=== PATIENT | female | born 1980 | race Hispanic/Latino ===

== ENCOUNTER 2017-08-22 13:25 | Emergency (ER) | payer OTHER ==
[~2017-08-22] VITALS: Ht 157.5 cm; Wt 64.4 kg
[~2017-08-22 13:25] MED LIST: AMBIEN10 MG PO; BACTRIM DS TAB1 EACH PO; CYMBALTA60 MG PO; FORTAMET500 MG PO; KLOR-CON M2020 MEQ PO; LITHIUM CARBON300 MG PO; METOCLOPRAMIDE10 MG PO; NEURONTIN300 MG PO; NEXIUM40 MG PO; PROMETHAZINE HC25 M1 PO; TRAZODONE HCL100 MG PO; VALIUM5 MG PO; ZESTORETIC 20-1 EAC1 PO; ZOVIRAX200 MG PO
--- OUTSIDE RECORDS SUMMARY | 2017-08-22 13:28 | XMS REPORT ---
Author Author [facility] Address Unknown Phone Unavailable Care Team Providers Care Quality Assurance Auditor Name Role Phone GINA MUHAMMAD Unavailable Unavailable Problems This patient has no known problems. Allergies, Adverse Reactions, Alerts This patient has no known allergies or adverse reactions. Medications This patient has no known medications. Results Test Description Test Time Test Comments Text Results Atomic Results Result Comments IR CONSULT [place] [address] Patient Name: RANGEL MARTINEZ MR #: [id number] : 1980 Age/Sex: 37/F Req #: [id number] Adm Physician: GINA MUHAMMAD MD Ordered by: MÓNICA HOU MD Report #: [id number] Location: [facility] Room/Bed: [facility] ___ Procedure: [id number] DX/IR CONSULT Exam Date: Exam Time: REPORT STATUS: Signed CT-guided abscess drain March Pre-Procedure Diagnosis: Abdominal abscess Post-procedure Diagnosis:Abdominal abscess Dining Room Cashier: Thien Leung Die Holder: None Sedation: Moderate sedation was provided with intravenous fentanyl and Versed. Heart rate, rhythm and oxygen saturation were monitored and real-time by a dedicated interventional radiology nurse under my direct supervision. Blood pressure was monitored in 5 minute increments. 1% lidocaine was used for local anesthesia. Total sedation time: 30 minutes Radiation Dose:329.78 mGy- cm (DLP) Estimate blood loss: <5 mL Blood administered: None Complications: None Implants/Grafts: None Specimen: 20 mL pus for Gram stain , culture and sensitivity. Procedure: Informed consent was obtained and the patient placed supine. A timeout was performed, followed by website developer CT within the region of interest. The anterior abdomen was prepped and draped in standard sterile fashion. Using intermittent CT guidance, an 18-gauge 15 cm Chiba needle was advanced into the abdominal abscess from an anterior approach. Upon confirmation of positioning the needle was exchanged for a 14- Gambian drainage catheter using standard Seldinger technique. 160 mL of additional pus was aspirated and discarded here the catheter was connected to a EMILY drain and secured. Findings: Large midline abdominal abscess in keeping with known bowel perforation. Impression: Successful CT-guided abscess drainage catheter placement under moderate sedation. This report was generated with voice-recognition technology. Errors in oracle erp architect can occur. Please interpret accordingly and contact a radiologist if there are any questions regarding the report. Signed by: Dr. Jaiden Leung M.D. on 03/19/2017 7:53 AM Dictated By: JAIDEN LEUNG MD 2 Transcribed By: WENDY on 03/19/17 075 COPY TO: MÓNICA HOU MD IMAGING GUIDANCE (DRAINAGE) [place] [address] Patient Name: RANGLE MARTINEZ MR #: [id number] : 1980 Age/Sex: 37/F Req #: [id number] Adm Physician: GINA MUHAMMAD MD Ordered by: MÓNICA HOU MD Report #: [id number] Location: MED/SURG3 Room/Bed: [facility] _ Procedure: [id number] IR/IMAGING GUIDANCE (DRAINAGE) Exam Date: 03/15/17 Exam Time: 1300 REPORT STATUS: Signed CT-guided abscess drain March 15, 2017 Pre-Procedure Diagnosis : Abdominal abscess Post-procedure Diagnosis:Abdominal abscess Dining Room Cashier: Thien Leung Die Holder: None Sedation: Moderate sedation was provided with intravenous fentanyl and Versed. Heart rate, rhythm and oxygen saturation were monitored and real-time by a dedicated interventional radiology nurse under my direct supervision. Blood pressure was monitored in 5 minute increments. 1% lidocaine was used for local anesthesia. Total sedation time: 30 minutes Radiation Dose:329.78 mGy-cm (DLP) Estimate blood loss: <5 mL Blood administered: None Complications: None Implants/Grafts: None Specimen: 20 mL pus for Gram stain, culture and sensitivity. Procedure: Informed consent was obtained and the patient placed supine. A timeout was performed, followed by website developer CT within the region of interest. The anterior abdomen was prepped and draped in standard sterile fashion. Using intermittent CT guidance, an 18-gauge 15 cm Chiba needle was advanced into the abdominal abscess from an anterior approach. Upon confirmation of positioning the needle was exchanged for a 14-Gambian drainage catheter using standard Seldinger technique. 160 mL of additional pus was aspirated and discarded here the catheter was connected to a EMILY drain and secured. Findings: Large midline abdominal abscess in keeping with known bowel perforation. Impression: Successful CT-guided abscess drainage catheter placement under moderate sedation. This report was generated with voice-recognition technology. Errors in oracle erp architect can occur. Please interpret accordingly and contact a radiologist if there are any questions regarding the report. Signed by: Dr. Jaiden Leung M.D. on 03/19/2017 7: 53 AM Dictated By: JAIDEN LEUNG MD 0753 Transcribed By: WENDY on 03/19/17 0753 COPY TO: MÓNICA HOU MD ABD FLUID/ABSC W CATH-CT [place] [address] Patient Name: RANGEL MARTINEZ MR #: [id number] : 1980 Age/Sex: 37/F Req #: [id number] Adm Physician: GINA MUHAMMAD MD Ordered by: MÓNICA HOU MD Report #: [id number] Location: MED/SURG3 Room/Bed: [facility] _ Procedure: [id number] CT/DRN ABD FLUID/ABSC W CATH-CT Exam Date: Exam Time: REPORT STATUS: Signed CT-guided abscess drain March 15, 2017 Pre-Procedure Diagnosis: Abdominal abscess Post-procedure Diagnosis:Abdominal abscess Dining Room Cashier: Thien Leung Die Holder: None Sedation: Moderate sedation was provided with intravenous fentanyl and Versed. Heart rate, rhythm and oxygen saturation were monitored and real-time by a dedicated interventional radiology nurse under my direct supervision. Blood pressure was monitored in 5 minute increments. 1% lidocaine was used for local anesthesia. Total sedation time: 30 minutes Radiation Dose:329.78 mGy-cm (DLP) Estimate blood loss: <5 mL Blood administered: None Complications: None Implants/Grafts: None Specimen: 20 mL pus for Gram stain, culture and sensitivity. Procedure: Informed consent was obtained and the patient placed supine. A timeout was performed, followed by website developer CT within the region of interest. The anterior abdomen was prepped and draped in standard sterile fashion. Using intermittent CT guidance, an 18-gauge 15 cm Chiba needle was advanced into the abdominal abscess from an anterior approach. Upon confirmation of positioning the needle was exchanged for a 14-Gambian drainage catheter using standard Seldinger technique. 160 mL of additional pus was aspirated and discarded here the catheter was connected to a EMILY drain and secured. Findings: Large midline abdominal abscess in keeping with known bowel perforation. Impression: Successful CT-guided abscess drainage catheter placement under moderate sedation. This report was generated with voice-recognition technology. Errors in oracle erp architect can occur. Please interpret accordingly and contact a radiologist if there are any questions regarding the report. Signed by: Dr. Jaiden Leung M.D. on 03/19/2017 7: 53 AM Dictated By: JAIDEN LEUNG MD 2 Transcribed By: WENDY on 03/19/17752 COPY TO: MÓNICA HOU MD CHEST SINGLE (PORTABLE) [place] [address] Patient Name: RANGEL MARTINEZ MR #: [id number] : 1980 Age/Sex: 37/F Req #: [id number] Adm Physician: Ordered by: JUNE BOWMAN Report #: [id number] Location: ER Room/Bed: _ Procedure: [id number] DX/CHEST SINGLE (PORTABLE) Exam Date: 03/14/17 Exam Time: 1227 REPORT STATUS: Signed EXAM: XR CHEST 1 VIEW DATE: 03/14/2017 3:03 PM INDICATION: Fever COMPARISON: 09/20/2013 FINDINGS: Lines and Tubes: None Heart and Mediastinum: No acute findings. Lungs and Pleura: No acute findings. Bones and Soft Tissues: No acute findings. IMPRESSION: 1. No acute cardiopulmonary findings. Signed by: Dr. Paul Mckeon MD on 03/14/2017 12: 52 PM Dictated By: PAUL MCKEON MD 125 Transcribed By: WENDY on 03/14/17 125 COPY TO: JUNE BOWMAN CT ABDOMEN/PELVIS W [place] [address] Patient Name: RANGEL MARTINEZ MR #: [id number] : 1980 Age/Sex: 37/F Req #: [id number] Adm Physician: Ordered by: JUNE BWOMAN Report #: [id number] Location: ER Room/Bed: _ Procedure: [id number] CT/CT ABDOMEN/PELVIS W Exam Date: 03/14/17 Exam Time: 1450 REPORT STATUS: Signed EXAM: CT Abdomen and Pelvis WITH contrast INDICATION: COMPARISON: None. TECHNIQUE: Abdomen and Pelvis was scanned utilizing a multidetector helical scanner after administration of IV contrast. Coronal and sagittal reformations were obtained. IV CONTRAST: See worksheet COMPLICATIONS: None RADIATION DOSE: Total DLP:256 mGy *cm Estimated effective dose: (DLP x 0.015 x size factor) mSv CTDIvol has been reviewed. It is below the limits set by the Radiation Protocol Committee (RPC). FINDINGS: Abdomen: Lung Bases: No acute findings. Solid Organs: Liver, adrenals, kidneys, spleen, and pancreas unremarkable. Cholecystectomy changes with mild reservoir phenomenon. Upper GI Tract: Bariatric postsurgical changes. Inflammatory changes in the upper abdomen presumed postsurgical. Bowel evaluation is limited given lack of enteric contrast. There is a 7.8 x 6 cm fluid and gas collection in the mid abdomen. It is unclear whether this is contiguous with bowel representing focal dilation of postsurgical bowel or whether this represents an intraperitoneal abscess. No distinct extraluminal gas identified. More distal small bowel obstruction nondilated. Vascularity: No aortic aneurysm. Lymph Nodes: Evaluation limited given mesenteric inflammatory changes. Other: Small amount of fluid and stranding in the ventral abdomen, statistically postsurgical. Pelvis: Bladder : Unremarkable. Other: Uterus heterogeneous, but poorly evaluated with CT. Fluid likely present within the endometrium. Small statistically physiologic cyst right adnexa. Colon: Colonic evaluation limited by decompression and lack of enteric contrast. No significant stool burden identified. Bones: No acute findings. IMPRESSION: 1. Bariatric surgery changes. There is a 7.8 x 6 cm fluid and gas collection in the mid abdomen. It is unclear whether this is contiguous with bowel representing focal dilation of postsurgical bowel or whether this represents an intraperitoneal abscess. Enteric contrast would be very helpful for further evaluation. Clinical and laboratory correlation recommended. 2. No significant stool burden identified. 3. Pelvic findings statistically physiologic in a patient of this age. Ultrasound could be obtained for further evaluation if indicated. Signed by: Dr. Paul Mckeon MD on 03/14/2017 3:23 PM Dictated By: PAUL MCKEON MD 1523 Transcribed By: WENDY on 03/14/17 1523 COPY TO: JUNE BOWMAN
[2017-08-22 14:23] LABS: BASOPHILS # (AUTO) 0.1 (0.0-0.1); BASOPHILS % 0.6 % (0.0-1.0); EOSINOPHILS # (AUTO) 0.2 (0.0-0.4); EOSINOPHILS % 1.6 % (0.0-6.0); HEMATOCRIT 31.1 % (34.2-44.1); HEMOGLOBIN 10.1 g/dL (12.0-16.0); LYMPHOCYTES # (AUTO) 1.3 (1.0-3.2); LYMPHOCYTES % 12.9 % (18.0-39.1); MEAN CORPUSCULAR HEMOGLOBIN 29.6 pg (28-32); MEAN CORPUSCULAR HGB CONC 32.5 g/dL (31-35); MEAN CORPUSCULAR VOLUME 91.2 fL (81-99); MONOCYTES # (AUTO) 0.4 (0.2-0.8); MONOCYTES % 4.1 % (4.4-11.3); NEUTROPHILS # (AUTO) 8.2 (2.1-6.9); NEUTROPHILS % 80.5 % (38.7-80.0); PLATELET COUNT 260 x10e3/uL (140-360); RED BLOOD COUNT 3.41 x10e6/uL (3.6-5.1); RED CELL DISTRIBUTION WIDTH 15.6 % (11.7-14.4)
[2017-08-22 14:28] LABS: CLARITY,URINE CLEAR (CLEAR); COLOR,URINE YELLOW (YELLOW); LEUKOCYTE ESTERASE ,URINE 2+ (NEGATIVE); NITRITE,URINE POSITIVE (NEGATIVE); PROTEIN,URINE DIPSTICK 1+ (NEGATIVE)
[2017-08-22 14:29] LABS: BILIRUBIN,URINE NEGATIVE (NEGATIVE); KETONES,URINE NEGATIVE (NEGATIVE); URINE UROBILINOGEN 1 mg/dL (0.2 - 1)
[2017-08-22] MEDS ORDERED: CEFTRIAXONE SOD 1 GM VIAL IV ONE (14:30)
[2017-08-22 14:35] LABS: WBC,URINE (MAN) >50 /HPF (0-5)
[2017-08-22 14:36] LABS: BACTERIA,URINE MANY /HPF; EPITHELIAL CELLS,URINE FEW /LPF; RBC,URINE 0-5 /HPF (0-5)
[2017-08-22 14:37] LABS: ALANINE AMINOTRANSFERASE 13 IU/L (0-55); ALBUMIN 3.1 g/dL (3.5-5.0); ALBUMIN/GLOBULIN RATIO 0.8 (0.8-2.0); ALKALINE PHOSPHATASE 75 IU/L (40-150); ANION GAP 9.4 mmol/L (8-16); BLOOD UREA NITROGEN 9 mg/dL (7-26); BUN/CREATININE RATIO 14 (6-25); CALCIUM 8.6 mg/dL (8.4-10.2); CARBON DIOXIDE 25 mmol/L (22-29); CHLORIDE 107 mmol/L (98-107); CREATINE KINASE 133 IU/L (29-168); CREATININE, SERUM 0.66 mg/dL (0.57-1.11); EST GLOMERULAR FILTRATION RATE > 60 ML/MIN (60-); GLUCOSE 102 mg/dL (74-118); POTASSIUM 3.4 mmol/L (3.5-5.1); SODIUM 138 mmol/L (136-145)
[2017-08-22] MEDS: SODIUM CHLORIDE 0.9% 1000ML 1,000 ML IV SCH ×2 (14:45→14:50)
[2017-08-22 15:45] VITALS: BP 105/63
== END 2017-08-22 16:07 | disposition home or self-care (01) ==
LOC: ER 13:25
DX: R53.1 Weakness (principal); R53.83 Other fatigue; N10 Acute pyelonephritis
CPT/HCPCS: 36415; 80053; 81001; 82550; 82553; 84484; 85025; 87086; 87186; 93005; 99283; J0696; J7030

== ENCOUNTER 2020-10-20 16:26 | Inpatient (IN) | payer SELFPAY ==
[~2020-10-20] VITALS: Ht 157.5 cm; Wt 67.3 kg
[2020-10-20 17:13] LABS: CLARITY,URINE CLEAR (CLEAR); COLOR,URINE YELLOW (YELLOW)
[2020-10-20 17:14] LABS: ALANINE AMINOTRANSFERASE 16 IU/L (0-55); ALBUMIN/GLOBULIN RATIO 1.3 (0.8-2.0); ALKALINE PHOSPHATASE 67 IU/L (40-150); ANION GAP 14.6 mmol/L (8-16); BLOOD UREA NITROGEN 12 mg/dL (7-26); BUN/CREATININE RATIO 17 (6-25); CALCIUM 9.2 mg/dL (8.4-10.2); CARBON DIOXIDE 22 mmol/L (22-29); CHLORIDE 107 mmol/L (98-107); CREATINE KINASE 711 IU/L (29-168); CREATININE, SERUM 0.69 mg/dL (0.57-1.11); EST GLOMERULAR FILTRATION RATE 95 ML/MIN (60-); GLUCOSE 104 mg/dL (74-118); KETONES,URINE 1+ (NEGATIVE); LEUKOCYTE ESTERASE ,URINE NEGATIVE (NEGATIVE); NITRITE,URINE NEGATIVE (NEGATIVE); POTASSIUM 3.6 mmol/L (3.5-5.1); PROTEIN,URINE DIPSTICK NEGATIVE (NEGATIVE); SODIUM 140 mmol/L (136-145); URINE UROBILINOGEN 0.2 mg/dL (0.2 - 1)
[2020-10-20 17:15] LABS: LIPASE 19 U/L (8-78)
[2020-10-20 17:17] LABS: BACTERIA,URINE RARE /HPF; EPITHELIAL CELLS,URINE FEW /LPF; RBC,URINE 0-5 /HPF (0-5); WBC,URINE (MAN) 0-5 /HPF (0-5)
[2020-10-20] MEDS ORDERED: ONDANSETRON HCL INJ 2MG/ML 2ML 2 MG/ML VIAL IV STA (17:19)
[2020-10-20] MEDS ORDERED: MORPHINE SULFATE INJ 4 MG/ML INJ 1ML IV STA (17:19)
[2020-10-20 17:22] LABS: BASOPHILS # (AUTO) 0.1 (0.0-0.1); BASOPHILS % 0.4 % (0.0-1.0); EOSINOPHILS # (AUTO) 0.6 (0.0-0.4); EOSINOPHILS % 4.1 % (0.0-6.0); HEMOGLOBIN 10.4 g/dL (12.0-16.0); LYMPHOCYTES # (AUTO) 1.5 (1.0-3.2); LYMPHOCYTES % 10.3 % (18.0-39.1); MEAN CORPUSCULAR HEMOGLOBIN 26.1 pg (28-32); MEAN CORPUSCULAR HGB CONC 30.6 g/dL (31-35); MEAN CORPUSCULAR VOLUME 85.2 fL (81-99); MONOCYTES # (AUTO) 0.4 (0.2-0.8); MONOCYTES % 2.4 % (4.4-11.3); NEUTROPHILS # (AUTO) 12.2 (2.1-6.9); NEUTROPHILS % 82.5 % (38.7-80.0); PLATELET COUNT 304 x10e3/uL (140-360); RED BLOOD COUNT 3.99 x10e6/uL (3.6-5.1); RED CELL DISTRIBUTION WIDTH 16.4 % (11.7-14.4)
[2020-10-20 17:30] LABS: THYROID STIMULATING HORMONE 1.624 uIU/mL (0.350-4.940)
[2020-10-20] MEDS ORDERED: SODIUM CHLORIDE 0.9% 1000ML 1,000 ML IV ONE (17:30)
[2020-10-20] MEDS ORDERED: SODIUM CHLORIDE 0.9% 50ML 50 ML ONE (17:31)
[2020-10-20] MEDS ORDERED: IOPAMIDOL 370 MG/ML 200 ML INFUS..BTL INJ ONE (17:32)
[2020-10-20] MEDS ORDERED: DIATRIZOATE MEGL/DIATRIZOA SOD 30 ML BTL PO ONE (17:32)
[2020-10-20] MEDS: SODIUM CHLORIDE 0.9% 1000ML 1,000 ML IV SCH (19:38)
[2020-10-20 21:15] VITALS: BP 107/59
[2020-10-20 23:10] VITALS: BP 110/68
[2020-10-20] MEDS: MORPHINE SULFATE INJ 4 MG/ML INJ 1ML IV PRN (23:10)
[2020-10-20 23:17] VITALS: BP 110/68
[2020-10-20] MEDS: ONDANSETRON HCL INJ 2MG/ML 2ML 2 MG/ML VIAL IV PRN (23:29)
[2020-10-21] VITALS (8 sets, daily range): BP systolic 90–107; BP diastolic 51–61
[2020-10-21 05:20] LABS: ALBUMIN/GLOBULIN RATIO 1.1 (0.8-2.0); ANION GAP 10.7 mmol/L (8-16); CALCIUM 7.8 mg/dL (8.4-10.2); CREATININE, SERUM 0.61 mg/dL (0.57-1.11); POTASSIUM 3.7 mmol/L (3.5-5.1)
[2020-10-21] MEDS: SODIUM CHLORIDE 0.9% 1000ML 1,000 ML IV SCH ×3 (06:36→21:13)
[2020-10-21 06:47] LABS: BASOPHILS % 0.3 % (0.0-1.0); EOSINOPHILS % 0.3 % (0.0-6.0); HEMATOCRIT 28.9 % (34.2-44.1); LYMPHOCYTES # (AUTO) 1.5 (1.0-3.2); LYMPHOCYTES % 12.4 % (18.0-39.1); MEAN CORPUSCULAR HEMOGLOBIN 26.4 pg (28-32); MEAN CORPUSCULAR HGB CONC 31.1 g/dL (31-35); MEAN CORPUSCULAR VOLUME 84.8 fL (81-99); MONOCYTES # (AUTO) 0.5 (0.2-0.8); MONOCYTES % 3.9 % (4.4-11.3); NEUTROPHILS % 82.7 % (38.7-80.0); PLATELET COUNT 238 x10e3/uL (140-360); RED BLOOD COUNT 3.41 x10e6/uL (3.6-5.1); RED CELL DISTRIBUTION WIDTH 16.4 % (11.7-14.4)
[2020-10-21] MEDS: MORPHINE SULFATE INJ 4 MG/ML INJ 1ML IV PRN ×2 (11:10→21:26)
[2020-10-21] MEDS: ONDANSETRON HCL INJ 2MG/ML 2ML 2 MG/ML VIAL IV PRN ×2 (11:10→21:26)
[2020-10-21] MEDS: METRONIDAZOLE 500MG/NS 100ML 100 ML IV SCH ×2 (14:01→21:16)
[2020-10-22] VITALS (8 sets, daily range): BP systolic 97–120; BP diastolic 51–78
[2020-10-22 05:05] LABS: BASOPHILS % 0.7 % (0.0-1.0); EOSINOPHILS # (AUTO) 0.4 (0.0-0.4); EOSINOPHILS % 6.5 % (0.0-6.0); HEMATOCRIT 26.1 % (34.2-44.1); HEMOGLOBIN 8.1 g/dL (12.0-16.0); LYMPHOCYTES # (AUTO) 1.6 (1.0-3.2); LYMPHOCYTES % 26.7 % (18.0-39.1); MEAN CORPUSCULAR HEMOGLOBIN 26.4 pg (28-32); MONOCYTES # (AUTO) 0.3 (0.2-0.8); MONOCYTES % 4.7 % (4.4-11.3); NEUTROPHILS # (AUTO) 3.7 (2.1-6.9); NEUTROPHILS % 61.1 % (38.7-80.0); PLATELET COUNT 179 x10e3/uL (140-360); RED BLOOD COUNT 3.07 x10e6/uL (3.6-5.1); RED CELL DISTRIBUTION WIDTH 16.7 % (11.7-14.4)
[2020-10-22 05:20] LABS: ANION GAP 7.5 mmol/L (8-16); CALCIUM 7.8 mg/dL (8.4-10.2); CREATININE, SERUM 0.58 mg/dL (0.57-1.11); POTASSIUM 3.5 mmol/L (3.5-5.1)
[2020-10-22] MEDS: SODIUM CHLORIDE 0.9% 1000ML 1,000 ML IV SCH ×3 (05:35→19:20)
[2020-10-22] MEDS: METRONIDAZOLE 500MG/NS 100ML 100 ML IV SCH ×3 (06:45→21:40)
[2020-10-22] MEDS: MORPHINE SULFATE INJ 4 MG/ML INJ 1ML IV PRN ×2 (14:28→21:40)
[2020-10-22] MEDS: ONDANSETRON HCL INJ 2MG/ML 2ML 2 MG/ML VIAL IV PRN ×2 (14:29→21:40)
[2020-10-23 00:08] VITALS: BP 116/76
[2020-10-23 00:23] LABS: FERRITIN 36.35 ng/mL (4.63-204.00)
[2020-10-23] MEDS: SODIUM CHLORIDE 0.9% 1000ML 1,000 ML IV SCH ×2 (04:02→12:06)
[2020-10-23] MEDS: ONDANSETRON HCL INJ 2MG/ML 2ML 2 MG/ML VIAL IV PRN (04:03)
[2020-10-23] MEDS: MORPHINE SULFATE INJ 4 MG/ML INJ 1ML IV PRN (04:03)
[2020-10-23 05:01] VITALS: BP 120/72
[2020-10-23 05:48] LABS: BASOPHILS % 0.8 % (0.0-1.0); EOSINOPHILS # (AUTO) 0.4 (0.0-0.4); EOSINOPHILS % 8.2 % (0.0-6.0); HEMATOCRIT 26.2 % (34.2-44.1); LYMPHOCYTES # (AUTO) 1.7 (1.0-3.2); LYMPHOCYTES % 34.9 % (18.0-39.1); MEAN CORPUSCULAR HEMOGLOBIN 26.1 pg (28-32); MEAN CORPUSCULAR HGB CONC 30.5 g/dL (31-35); MEAN CORPUSCULAR VOLUME 85.3 fL (81-99); MONOCYTES # (AUTO) 0.3 (0.2-0.8); MONOCYTES % 6.8 % (4.4-11.3); NEUTROPHILS # (AUTO) 2.3 (2.1-6.9); NEUTROPHILS % 49.3 % (38.7-80.0); PLATELET COUNT 200 x10e3/uL (140-360); RED BLOOD COUNT 3.07 x10e6/uL (3.6-5.1); RED CELL DISTRIBUTION WIDTH 16.4 % (11.7-14.4)
[2020-10-23] MEDS: METRONIDAZOLE 500MG/NS 100ML 100 ML IV SCH ×2 (05:52→14:25)
[2020-10-23 06:16] LABS: ALBUMIN 2.8 g/dL (3.5-5.0); ANION GAP 9.4 mmol/L (8-16); CALCIUM 8.1 mg/dL (8.4-10.2); CREATININE, SERUM 0.62 mg/dL (0.57-1.11); POTASSIUM 3.4 mmol/L (3.5-5.1)
[2020-10-23 07:55] VITALS: BP 101/66
[2020-10-23 10:50] VITALS: BP 101/66
[2020-10-23] MEDS ORDERED: POTASSIUM BICARBONATE/CIT AC 20 MEQ TABLET.EFF PO ONE (11:00)
[2020-10-23 15:35] VITALS: BP 109/67
== END 2020-10-23 17:45 | disposition home or self-care (01) | DRG 395 ==
LOC: ER 16:36 → ERHOLD 19:16 → MED/SURG2 21:56
PROVIDERS: ADMIT Internal Medicine; ATTEND Internal Medicine
DX: K95.89 Other complications of other bariatric procedure (principal); Z98.0 Intestinal bypass and anastomosis status; Y84.8 Other medical procedures as the cause of abnormal reaction of the patient, or of later complication, without mention of misadventure at the time of the procedure; D64.9 Anemia, unspecified; K21.00 Gastro-esophageal reflux disease with esophagitis, without bleeding; Z20.822 Contact with and (suspected) exposure to COVID-19
CPT/HCPCS: 36415; 71045; 74019; 74177; 74181; 80048; 80053; 81001; 82550; 82553; 82607; 82728; 82746; 83540; 83690; 83735; 84443; 84466; 84484; 84702; 85025; 85045; 93005; 99284; J2270; J2405; J7030; Q9967; U0002